=== PATIENT | female | born 1980 | race Caucasian/White ===

== ENCOUNTER 2016-03-24 09:15 | Outpatient (RCR) | payer MEDICARE, BC, MEDICAID ==
[~2016-03-24 09:15] MED LIST: IMODIUM2 MG PO; IMPRAMINE; LIPITOR20 MG PO; SEASONIQUE1 TAB PO; SINGULAIR10 MG PO; ZYRTEC 10MG PO; [UNRECOGNIZED DRUG - OTHER]
== END 2016-05-27 12:50 | disposition still patient (30) ==
LOC: WSPT 09:15
DX: S82.892D Other fracture of left lower leg, subsequent encounter for closed fracture with routine healing (principal); W18.31XD Fall on same level due to stepping on an object, subsequent encounter; Y99.0 Civilian activity done for income or pay
CPT/HCPCS: G8978-GP; G8979-GP; G8980-GP

== ENCOUNTER → 2016-11-04 | Outpatient (CLI) | payer MEDICARE, BC, MEDICAID | LOC: BHSO 13:24 | DX: F42.9 Obsessive-compulsive disorder, unspecified (principal) ==

== ENCOUNTER → 2017-04-13 | Outpatient (CLI) | payer MEDICARE, BC, MEDICAID | LOC: BHSO 10:51 | DX: F31.73 Bipolar disorder, in partial remission, most recent episode manic (principal) ==

== ENCOUNTER → 2017-12-22 | Outpatient (CLI) | payer MEDICARE, BC, MEDICAID | LOC: BHSO 14:00 | DX: F42.8 Other obsessive-compulsive disorder (principal) | CPT/HCPCS: G0463 ==

== ENCOUNTER → 2018-07-01 | Outpatient (CLI) | payer MEDICARE, BC, MEDICAID | LOC: BHSO 09:54 | DX: F41.1 Generalized anxiety disorder (principal) | CPT/HCPCS: G0463 ==

== ENCOUNTER → 2019-02-11 | Outpatient (CLI) | payer BC, MEDICAID, MEDICARE | LOC: BHSO 10:27 | DX: F42.8 Other obsessive-compulsive disorder (principal) | CPT/HCPCS: G0463 ==

== ENCOUNTER → 2019-10-07 | Outpatient (CLI) | payer BC, MEDICAID, MEDICARE | LOC: BHSO 10:20 | DX: F41.1 Generalized anxiety disorder (principal) ==

== ENCOUNTER → 2019-11-07 | Outpatient (CLI) | payer BC, MEDICAID, MEDICARE | LOC: BHSTELE 13:00 → BHSO 13:00 | DX: F41.1 Generalized anxiety disorder (principal) | CPT/HCPCS: G0463 ==

== ENCOUNTER → 2020-12-18 | Outpatient (CLI) | payer MEDICARE, BC, MEDICAID | LOC: MC.RAD 15:23 | DX: Z12.31 Encounter for screening mammogram for malignant neoplasm of breast (principal); N64.89 Other specified disorders of breast ==

== ENCOUNTER → 2020-12-24 | Outpatient (CLI) | payer MEDICARE, BC, MEDICAID | LOC: MC.RAD 12:56 | DX: N64.89 Other specified disorders of breast (principal) ==

== ENCOUNTER → 2022-01-01 | Outpatient (CLI) | payer MEDICARE, BC, MEDICAID | LOC: MC.RAD 14:29 | DX: Z12.31 Encounter for screening mammogram for malignant neoplasm of breast (principal) ==

== ENCOUNTER → 2023-09-07 | Outpatient (CLI) | payer MEDICARE, BC | LOC: MC.RAD 13:54 | DX: R92.8 Other abnormal and inconclusive findings on diagnostic imaging of breast (principal) ==